=== PATIENT | male | born 1980 | race African-American/Black ===

== ENCOUNTER 2017-10-01 13:42 | Inpatient (IN) | payer OTHER ==
[~2017-10-01] VITALS: Ht 175.3 cm; Wt 86.0 kg
[~2017-10-01 13:42] MED LIST: ABILIFY10 MG PO; ADVAIR 500/501 DISK IH; ATARAX,VISTARIL25 MG PO; Abilify PO; Advair HFA 115/21 IH; CYCLOBENZAPRINE10 MG PO; Ceftin PO; DIAZEPAM10 MG PO; DIAZEPAM5 MG PO; DOXYCYCLINE HY100 MG PO; ESCITALOPRAM OX20 MG PO; FLEXERIL10 MG PO; FLOVENT DISKUS1 DIS2 IH; IBUPROFEN600 MG PO; INDOCIN25 MG PO; LEXAPRO20 MG PO; Levaquin PO; METFORMIN HCL500 MG PO; MOTRIN600 MG PO; NORCO 7.5/321 TABLET PO; PHENERGAN-CODE120 ML PO; PROAIR HFA8.5 GM IH; PROVENTIL,2.5 MG/0.5 IH; PROVENTIL,200 INHALA IH; Percocet 5/325,Endoc PO; Protonix PO; RANITIDINE HCL150 M1 PO; RANITIDINE HCL150 MG PO; SYMBICORT60 INHALAT IH; TAMIFLU75 MG PO; TESSALON200 MG PO; TOPAMAX200 MG PO; TOPIRAMATE200 MG PO; TRAMADOL HCL50 MG PO; TYLENOL WITH C1 EACH PO; ULTRAM50 MG PO; UNABLEOBTAIN; UNSURE OF MEDS; VALIUM5 MG PO; VENTOLIN HFA18 GM IH; [UNRECOGNIZED DRUG - REMARK]; [UNRECOGNIZED DRUG - REMARK]; [UNRECOGNIZED DRUG - REMARK]; [UNRECOGNIZED DRUG - REMARK]; [UNRECOGNIZED DRUG - REMARK]; [UNRECOGNIZED DRUG - REMARK]; [UNRECOGNIZED DRUG - REMARK]; predniSONE PO; prednisone
[2017-10-01 14:45] LABS: BASOPHIL (%) 0.9 % (0-1); BASOPHIL COUNT 0.1 K/uL (0-0.1); EOSINOPHIL (%) 0.3 % (0-5); HEMOGLOBIN 13.9 G/DL (12.5-16.6); IMMATURE GRANULOCYTE (%) 0.3 % (0.0-0.7); LYMPHOCYTE (%) 30.8 % (15-42); MCH 33.2 PG (29.0-34.0); MCHC 34.8 G/DL (30.0-36.0); MCV 95.5 FL (86-99); MONOCYTE (%) 12.1 % (3-12); MONOCYTE COUNT 0.8 K/uL (0-0.8); NEUTROPHIL (%) 55.6 % (45-76); NEUTROPHIL COUNT 3.5 K/uL (1.8-6.4); PLATELET COUNT 311 K/uL (156-360); RBC DIS.WIDTH-CV 11.7 % (11.8-14.6); RBC DIS.WIDTH-SD 40.8 % (39-53); RED BLOOD COUNT 4.19 M/uL (4.00-5.50); WHITE BLOOD COUNT 6.4 K/uL (4.1-10.2)
[2017-10-01 14:54] LABS: CHLORIDE 107 mEq/L (99-109); POTASSIUM 3.4 mEq/L (3.7-5.4); SODIUM 140 mEq/L (136-147)
[2017-10-01 14:57] LABS: GLUCOSE 130 mg/dL (70-99)
[2017-10-01 14:59] LABS: TOTAL BILIRUBIN 0.3 mg/dL (0.0-1.0)
[2017-10-01 15:00] LABS: ALKALINE PHOSPHATASE 102 IU/L (3-129); SERUM ETHYL ALCOHOL < 10 mg/dL
[2017-10-01 15:01] LABS: CREATININE 1.2 mg/dL (0.6-1.3); GFR ESTIMATE (CALCULATED) > 59 mL/min/ (58.99-99999)
[2017-10-01 15:02] LABS: AST (GOT) 32 IU/L (2-34); UREA NITROGEN (BUN) 12 mg/dL (9-23)
[2017-10-01 15:03] LABS: ALT (GPT) 21 IU/L (3-49)
[2017-10-01 15:10] LABS: APPEARANCE CLEAR ((CLEAR)); BILIRUBIN NEGATIVE; BLOOD NEGATIVE; COLOR YELLOW ((YELLOW)); GLUCOSE (STRIP) NEGATIVE; KETONES NEGATIVE; LEUKOCYTES NEGATIVE; NITRITE NEGATIVE; PROTEIN (STRIP) NEGATIVE; SPECIFIC GRAVITY 1.023 (1.000-1.030); UCUL ADDED? NO
[2017-10-01 19:18] LABS: AMPHETAMINE NEGATIVE (500 ng/mL); BARBITURATES NEGATIVE (200 ng/mL); BENZODIAZEPINES NEGATIVE (150 ng/mL); BUPRENORPHINE NEGATIVE (10 ng/mL); COCAINE NEGATIVE (150 ng/mL); METHADONE NEGATIVE (200 ng/mL); METHAMPHETAMINE NEGATIVE (500 ng/mL); OPIATES (MORPHINE) NEGATIVE (100 ng/mL); OXYCODONE NEGATIVE (100 ng/mL); PHENCYCLIDINE NEGATIVE (25 ng/mL); PROPOXYPHENE NEGATIVE (300 ng/mL); THC CANNABINOIDS NEGATIVE (50 ng/mL); TRICYCLIC ANTIDEPRESSANTS NEGATIVE (300 ng/mL)
[2017-10-02] MEDS ORDERED: ODOR FREE GARL1 EAC1 PO (08:26)
[2017-10-02] MEDS ORDERED: PROVENTIL,2.5 MG/3 M IH (08:27)
[2017-10-02] MEDS ORDERED: CENTRUM SILVER1 EAC3 PO (08:27)
[2017-10-02] MEDS ORDERED: FLONASE16 G1 BOTH NARES (08:29)
[2017-10-02 12:25] VITALS: BP 147/101
[2017-10-02 16:01] VITALS: BP 144/71
[2017-10-03 07:45] VITALS: BP 110/58
[2017-10-03 16:12] VITALS: BP 158/87
[2017-10-04 08:07] VITALS: BP 135/75
[2017-10-04 15:50] VITALS: BP 129/72
[2017-10-05 08:23] VITALS: BP 147/89
[2017-10-05 16:46] VITALS: BP 109/61
[2017-10-06 07:41] VITALS: BP 135/82
[2017-10-06 16:39] VITALS: BP 133/85
[2017-10-07 07:45] VITALS: BP 137/81
[2017-10-07 16:00] VITALS: BP 115/56
[2017-10-08 07:51] VITALS: BP 142/68
[2017-10-08] MEDS ORDERED: ARIPIPRAZOLE10 MG PO (09:11)
[2017-10-08] MEDS ORDERED: DIVALPROEX SOD500 M1 PO (09:11)
== END 2017-10-08 11:30 | disposition home or self-care (01) | DRG 885 ==
LOC: EME 13:42 → 1WEST 10-02 11:25 → ENRESERV 10-02 11:37 → EME 10-02 12:03 → 1WEST 10-02 12:27
PROVIDERS: Emergency Medicine
DX: F25.0 Schizoaffective disorder, bipolar type (principal); F31.12 Bipolar disorder, current episode manic without psychotic features, moderate; E11.9 Type 2 diabetes mellitus without complications; I10 Essential (primary) hypertension; R45.850 Homicidal ideations; Z60.2 Problems related to living alone; F41.9 Anxiety disorder, unspecified; Z85.47 Personal history of malignant neoplasm of testis; Z56.0 Unemployment, unspecified; Z73.6 Limitation of activities due to disability; J30.2 Other seasonal allergic rhinitis; Z91.14 Patient's other noncompliance with medication regimen; Z79.51 Long term (current) use of inhaled steroids
CPT/HCPCS: 80053; 80164; 81003; 83735; 85025; 90839; 94640; 94640 76; 94760; 99202; 99281; 99285; G0480

== ENCOUNTER 2017-10-16 21:33 | Emergency (ER) | payer OTHER ==
[~2017-10-16] VITALS: Ht 175.3 cm; Wt 86.7 kg
[~2017-10-16 21:33] MED LIST changes: +ARIPIPRAZOLE10 MG PO; +CENTRUM SILVER1 EAC3 PO; +DIVALPROEX SOD500 M1 PO; +FLONASE16 G1 BOTH NARES; +ODOR FREE GARL1 EAC1 PO; +PROVENTIL,2.5 MG/3 M IH
[2017-10-16 23:29] LABS: HEMATOCRIT 40.2 % (38.0-50.0); HEMOGLOBIN 13.7 G/DL (12.5-16.6); MCH 33.7 PG (29.0-34.0); MCHC 34.1 G/DL (30.0-36.0); PLATELET COUNT 333 K/uL (156-360); RBC DIS.WIDTH-CV 12.2 % (11.8-14.6); RBC DIS.WIDTH-SD 44.1 % (39-53); RED BLOOD COUNT 4.06 M/uL (4.00-5.50); WHITE BLOOD COUNT 7.9 K/uL (4.1-10.2)
[2017-10-16 23:41] LABS: ALBUMIN 3.9 g/dL (3.2-4.8); CHLORIDE 112 mEq/L (99-109); POTASSIUM 3.7 mEq/L (3.7-5.4); SODIUM 143 mEq/L (136-147)
[2017-10-16 23:43] LABS: APPEARANCE CLEAR ((CLEAR)); BILIRUBIN NEGATIVE; BLOOD NEGATIVE; COLOR YELLOW ((YELLOW)); GLUCOSE (STRIP) NEGATIVE; KETONES NEGATIVE; LEUKOCYTES NEGATIVE; NITRITE NEGATIVE; PROTEIN (STRIP) NEGATIVE; SPECIFIC GRAVITY 1.021 (1.000-1.030); UROBILINOGEN 0.2 MG/DL (0.2-1.0)
[2017-10-16 23:43] LABS: GLUCOSE 106 mg/dL (70-99)
[2017-10-16 23:45] LABS: TOTAL BILIRUBIN 0.3 mg/dL (0.0-1.0)
[2017-10-16 23:47] LABS: ALKALINE PHOSPHATASE 88 IU/L (3-129); CREATININE 1.1 mg/dL (0.6-1.3); GFR ESTIMATE (CALCULATED) > 59 mL/min/ (58.99-99999)
[2017-10-16 23:48] LABS: UREA NITROGEN (BUN) 15 mg/dL (9-23)
[2017-10-16 23:49] LABS: AST (GOT) 13 IU/L (2-34); DIRECT BILIRUBIN 0.2 mg/dL (0.0-0.3)
[2017-10-16 23:50] LABS: ALT (GPT) 13 IU/L (3-49); LIPASE 17 U/L (1.0-51.0)
[2017-10-16 23:52] LABS: THC CANNABINOIDS NEGATIVE (50 ng/mL)
[2017-10-16 23:53] LABS: AMPHETAMINE NEGATIVE (500 ng/mL); BARBITURATES NEGATIVE (200 ng/mL); BENZODIAZEPINES NEGATIVE (150 ng/mL); BUPRENORPHINE NEGATIVE (10 ng/mL); COCAINE NEGATIVE (150 ng/mL); METHADONE NEGATIVE (200 ng/mL); METHAMPHETAMINE NEGATIVE (500 ng/mL); OPIATES (MORPHINE) NEGATIVE (100 ng/mL); OXYCODONE NEGATIVE (100 ng/mL); PHENCYCLIDINE NEGATIVE (25 ng/mL); PROPOXYPHENE NEGATIVE (300 ng/mL); TRICYCLIC ANTIDEPRESSANTS NEGATIVE (300 ng/mL)
[2017-10-17 02:39] LABS: CREATINE KINASE 162 IU/L (1-294); VALPROIC ACID (DEPAKOTE) 46.6 MCG/ML (50-100)
[2017-10-17] MEDS ORDERED: VISTARIL50 MG PO (03:20)
[2017-10-17] MEDS ORDERED: ZANTAC300 MG PO (03:20)
[2017-10-17] MEDS ORDERED: ZOFRAN ODT4 MG PO (03:21)
[2017-10-17] MEDS ORDERED: DEPAKOTE ER250 MG PO (03:24)
[2017-10-17 04:15] VITALS: BP 140/93
== END 2017-10-17 04:42 | disposition home or self-care (01) ==
LOC: EME 21:33
PROVIDERS: Physician Assistant
DX: F41.9 Anxiety disorder, unspecified (principal); G47.00 Insomnia, unspecified; J45.909 Unspecified asthma, uncomplicated; K21.9 Gastro-esophageal reflux disease without esophagitis; F25.0 Schizoaffective disorder, bipolar type; Z87.891 Personal history of nicotine dependence
CPT/HCPCS: 80048; 80076; 80164; 81003; 82550; 83690; 85027; 90839; 99281; 99284; Q0177